=== PATIENT | female | born 1980 | race Two or more races ===

== ENCOUNTER 2021-08-23 09:11 | Outpatient (CLI) | payer OTHER | END 2021-08-23 09:26 | disposition home or self-care (01) | LOC: RX STUDY 09:11 | PROVIDERS: ATTEND Obstetrics & Gynecology | DX: D25.0 Submucous leiomyoma of uterus (principal); N93.8 Other specified abnormal uterine and vaginal bleeding ==

== ENCOUNTER 2022-07-24 11:28 | Outpatient (CLI) | payer OTHER | END 2022-07-24 11:40 | disposition home or self-care (01) | LOC: SONOGRAMA 11:28 | DX: N97.9 Female infertility, unspecified (principal) ==

== ENCOUNTER 2022-07-26 13:20 | Outpatient (CLI) | payer OTHER | END 2022-07-26 13:37 | disposition home or self-care (01) | LOC: SONOGRAMA 13:20 | DX: N97.9 Female infertility, unspecified (principal) ==

== ENCOUNTER 2022-07-29 13:01 | Outpatient (CLI) | payer OTHER | END 2022-07-29 13:12 | disposition home or self-care (01) | LOC: SONOGRAMA 13:01 | DX: N97.9 Female infertility, unspecified (principal) ==

== ENCOUNTER 2022-07-31 13:20 | Outpatient (CLI) | payer OTHER | END 2022-07-31 13:42 | disposition home or self-care (01) | LOC: SONOGRAMA 13:20 | DX: N97.9 Female infertility, unspecified (principal) ==

== ENCOUNTER 2022-09-20 11:43 | Outpatient (CLI) | payer OTHER | END 2022-09-20 12:03 | disposition home or self-care (01) | LOC: SONOGRAMA 11:43 | PROVIDERS: ATTEND Surgery | DX: N60.11 Diffuse cystic mastopathy of right breast (principal); N60.12 Diffuse cystic mastopathy of left breast; D23.5 Other benign neoplasm of skin of trunk ==

== ENCOUNTER 2022-10-11 13:12 | Outpatient (CLI) | payer OTHER | END 2022-10-11 13:19 | disposition home or self-care (01) | LOC: SONOGRAMA 13:12 | PROVIDERS: ATTEND Surgery | DX: N60.02 Solitary cyst of left breast (principal); N60.01 Solitary cyst of right breast; N60.11 Diffuse cystic mastopathy of right breast; N60.12 Diffuse cystic mastopathy of left breast ==

== ENCOUNTER 2022-11-15 13:54 | Outpatient (CLI) | payer OTHER | END 2022-11-15 14:02 | disposition home or self-care (01) | LOC: SONOGRAMA 13:54 | PROVIDERS: ATTEND Surgery | DX: D24.1 Benign neoplasm of right breast (principal); D24.2 Benign neoplasm of left breast; N60.11 Diffuse cystic mastopathy of right breast; N60.12 Diffuse cystic mastopathy of left breast ==

== ENCOUNTER 2022-12-20 13:48 | Outpatient (CLI) | payer OTHER | END 2022-12-20 14:06 | disposition home or self-care (01) | LOC: SONOGRAMA 13:48 | PROVIDERS: ATTEND Surgery | DX: D24.1 Benign neoplasm of right breast (principal); N60.11 Diffuse cystic mastopathy of right breast; N60.12 Diffuse cystic mastopathy of left breast ==